=== PATIENT | female | born 1995 | race Caucasian/White ===

== ENCOUNTER 2021-10-18 13:25 | Emergency (ER) | payer OTHER ==
[2021-10-18 15:13] LABS: BASOPHIL 0.6 % (0-2); EOSINOPHIL 2.7 % (0-5); HGB 14.7 g/dl (12.5-16.0); LYMPHOCYTE 25.2 % (15-48); MCHC 34.2 g/dL (32.0-36.0); MCV 81.9 fL (78.0-100.0); MPV 8.9 fL (6.0-9.5); NEUTROPHIL 65.1 % (41-80); NRBC 0; PLT 287 K/uL (150-400); RBC 5.25 M/uL (4.20-5.40); RDW 13.7 % (11.5-14.0)
[2021-10-18 15:20] LABS: BUN/CREAT RATIO (CALC) 13.9 RATIO; CREATININE 0.79 mg/dL (0.51-0.95); POTASSIUM 3.6 mmol/L (3.5-5.1)
[2021-10-18 16:33] LABS: BILIRUBIN 1+ mg/dL (NEGATIVE); BLOOD 3+ Ery/uL (NEGATIVE); GLUCOSE (U) NORMAL (NORMAL); LEUKOCYTES NEGATIVE Leu/uL (NEGATIVE); NITRITE NEGATIVE (NEGATIVE); PROTEIN 1+ mg/dL (NEGATIVE); SPECIFIC GRAVITY >=1.030 (1.001-1.030); UROBILINOGEN 0.2 mg/dL (0.2-1.0)
[2021-10-18 16:35] LABS: CLARITY HAZY (CLEAR); COLOR BROWN (YELLOW)
[2021-10-18 16:45] LABS: URINARY RBC TNTC; URINARY WBC RARE
[2021-10-18 16:48] LABS: MUCOUS TRACE
== END 2021-10-18 16:00 | disposition left against medical advice (07) ==
LOC: FER 13:25
PROVIDERS: Nurse Practitioner Family
DX: N93.9 Abnormal uterine and vaginal bleeding, unspecified (principal); F17.210 Nicotine dependence, cigarettes, uncomplicated; Z53.8 Procedure and treatment not carried out for other reasons
CPT/HCPCS: 36415; 80048; 81001; 84702; 85025; 99283

== ENCOUNTER → 2021-12-12 | Day surgery (SDC) | payer OTHER ==
[~2021-12-12] VITALS: Ht 167.6 cm; Wt 107.0 kg
[~2021-12-12] MED LIST: COLACE100 MG PO; IBU600 MG PO; PERCOCET 5-3251 EACH PO; ZOLOFT50 MG PO
[2021-12-12 09:49] LABS: HCT 43.4 % (37.0-47.0); HGB 14.9 g/dl (12.5-16.0); MCH 28.4 pg (25.0-31.0); MCHC 34.3 g/dL (32.0-36.0); MCV 82.8 fL (78.0-100.0); MPV 8.9 fL (6.0-9.5); RBC 5.24 M/uL (4.20-5.40); WBC 8.7 K/uL (4.0-10.5)
== END | disposition home or self-care (01) ==
LOC: FAS 08:00
PROVIDERS: Obstetrics & Gynecology
DX: N87.9 Dysplasia of cervix uteri, unspecified (principal); N72 Inflammatory disease of cervix uteri; F17.200 Nicotine dependence, unspecified, uncomplicated
CPT/HCPCS: 36415; 84703; 86850; 86900; 86901; 93005; J0690; J1100; J1170; J1885; J2250; J2405; J2550; J2704; J2710; J3010; J7120